=== PATIENT | female | born 1950 | race Caucasian/White ===

== ENCOUNTER 2021-04-20 04:36 | Emergency (ER) | payer MEDICARE, OTHER, BC, SELFPAY ==
[2021-04-20 04:38] VITALS: BP 165/86; PULSE 81; RESP 19; TEMP 36.7; O2SAT 98; BMI 30.9
--- NOTE | 2021-04-20 04:54 | EKG12_ITS ---
Test Reason : CP Blood Pressure : / mmHG Vent. Rate : 066 BPM Atrial Rate : 066 BPM P-R Int : 156 ms QRS Dur : 088 ms QT Int : 404 ms P-R-T Axes : 050 -11 057 degrees QTc Int : 423 ms Normal sinus rhythm Normal ECG Confirmed by CECE MCDONALD, CARMELITA ([id number]), purchase request editor TATUM CHAMPION ([id number]) on 04/21/2021 9:35:57 AM Referred By: PL Confirmed By:CARMELITA ZHAO MD
--- NOTE | 2021-04-20 04:54 | RAD_ITS ---
STUDY: X-RAY CHEST REASON FOR EXAM: Female, 70 years old. chest pain TECHNIQUE: Single AP portable view of the chest. COMPARISON: None. FINDINGS: The lungs are clear and expanded. There is no demonstrated pleural abnormality. Normal size heart. Normal mediastinum and jewell. Normal visualized pulmonary arteries. Normal visualized aortic arch and descending thoracic aorta. There is a dextroscoliosis of the thoracic spine. There is degenerative osteoarthritis of the bilateral shoulders. There is no demonstrated abnormality of the visualized soft tissue structures of the upper abdomen. RAD/Chest 1 View (Portable) IMPRESSION: Degenerative changes, as described above. No demonstrated acute cardiopulmonary process. Electronically Signed: Amos Glaser MD at 5:29 EDT Tel , Service support ,
--- NOTE | 2021-04-20 04:55 | EX.ED.DYSGE1 ---
HPI History of Present Illness Chief Complaint: Chest Pain Informant: patient Narrative Narrative: Patient presents with pain that was just under the left breast at the upper abdomen area. She states it felt like a muscle pull. Nothing made it better or worse. It occurred as she was lying down. No dyspnea. No coughing. No nausea vomiting or diaphoresis. Patient just had a 3 to 4-hour surgery for bladder suspension and mesh placement at [facility] 8 days ago. She has been doing well. She has been eating drinking and moving the bowels well. Urinating well. She has not been having the symptoms until this morning. She has no history of DVT or PE. No family history. No family history of early cardiac disease. No recent travel. [facility] Medical History Hypertension Home Medications amlodipine 5 mg PO/SL DAILY 04/20/21 [History Last Taken Unknown] atorvastatin 10 mg PO/SL DINNER 04/20/21 [History Last Taken Unknown] spironolactone 25 mg PO/SL DAILY 04/20/21 [History Last Taken Unknown] Allergy/AdvReac Type Severity Reaction Status Date / Time Penicillins Allergy Rash Verified 04/20/21 04:43 erythromycin base AdvReac Nausea/Vom/ Verified 04/20/21 04:43 Diarrhea Surgical History H/O: hysterectomy Social History Smoking Status: Never smoker ROS [facility] ED Constitutional Constitutional ED: Denies fever(s) or sweats ENT ENT ED: Denies rhinorrhea or sore throat Cardiovascular Cardiovascular: Reports chest pain and other Details: See history of present illness. ; Denies palpitations or racing heartbeat Respiratory/Chest Respiratory/Chest: Denies cough, dyspnea or sputum Gastrointestinal Gastrointestinal: Reports abdominal pain and other Details: See history of present illness ; Denies constipation, diarrhea, melena, nausea or vomiting Genitourinary Genitourinary ED: Denies dysuria or hematuria Musculoskeletal Musculoskeletal: Denies back pain, myalgias or neck pain Integumentary Denies rash Neurologic Neurologic: Denies headache(s), paresthesias or weakness Psychiatric Psychiatric: Denies depression Endocrine Endocrinology: Denies polydipsia or polyuria Allergic/Immunologic Allergic/Immunologic ED: Denies urticaria EXAM Physical Exam Const Vital Signs: 04/20/21 04:38 04/20/21 06:00 04/20/21 06:49 Temperature 98.1 F Temperature Source Oral Pulse Rate 81 66 Respiratory Rate 19 H 18 Respiratory Effort Normal Blood Pressure 165/86 H 112/72 Blood Pressure Mean 112 85 Pulse Ox 98 96 Oxygen Delivery Method Room Air Room Air Patient looks comfortable. Positive well nourished and well developed General Appearance ED: well developed and NAD; Negative for cyanotic or diaphoretic HEENT Negative for trauma or tenderness Eyes General Eye ED: Negative for pale conjunctiva or scleral icterus Neck no JVD Chest Wall inspection of chest normal and palpation of chest normal Resp normal respiratory effort and clear to auscultation bilaterally Effort and Inspection: Negative for pain with movement Auscultation: Negative for rales, rhonchi or wheezes Cardio regular rate, regular rhythm and no murmurs GI normal to inspection, nondistended, normoactive bowel sounds and non-tender GI Narrative: 5 port sites are clean dry and intact. Palpation: soft Back/Spine no CVA tenderness Extremity normal to inspection Extremity Narrative: No edema, cords, distended veins, tenderness along the deep venous system or asymmetry. General Extremety ED: Negative for edema or tenderness General Extremity: Negative for edema Neuro oriented x3 Sensorium / Orientation: alert Psych mental status grossly normal Skin no rashes or lesions noted MDM MDM MDM Narrative Medical decision making narrative: Patient's blood work showed normal CBC electrolytes liver function test. D-dimer was elevated at 0.8. This was suspected. But with this and her complaints and recent history we did do CT scans. I did CTA of the chest and CT of the abdomen because of her recent surgery. Happily these do not show any acute process. Patient is comfortable. She will go home and follow-up with her physician. If she has fevers, pains, trouble breathing or any other symptoms she is welcome to return at any time. Lab Data Attestation: I reviewed the patient's lab results. Labs: Laboratory Results - last 24 hr 04/20/21 04/20/21 04/20/21 04:43 04:43 04:43 WBC 7.3 RBC 4.64 Hgb 13.6 Hct 42.6 MCV 91.8 MCH 29.3 MCHC 31.9 L RDW Std Deviation 45.6 H RDW Coeff of Maile 13.3 Plt Count 362 MPV 10.2 Immature Gran % (Auto) 0.400 Neut % (Auto) 60.7 Lymph % (Auto) 26.9 Sweet Grass % (Auto) 6.8 Eos % (Auto) 4.5 Baso % (Auto) 0.7 Absolute Neuts (auto) 4.4 Absolute Lymphs (auto) 1.97 Nucleated RBC % 0 D-Dimer Quant (PE/DVT) 0.80 H* Sodium 139 Potassium 3.9 Chloride 104 Carbon Dioxide 28.0 Anion Gap 7 BUN 17 Creatinine 0.68 Estim Creat Clear Calc 40.22 Est GFR (MDRD) Af Amer 109 Est GFR (MDRD) Non-Af 90 BUN/Creatinine Ratio 24.9 H Glucose 95 Calcium 9.0 Total Bilirubin 0.40 AST 22 ALT 30 Alkaline Phosphatase 91 Troponin I High Sens 6 Total Protein 7.9 Albumin 3.6 Globulin 4.3 H Albumin/Globulin Ratio 0.8 L Radiography Diagnostic Testing: Clinical Impression(s) from Imaging Studies Chest X-Ray 04/20/21 04:54 IMPRESSION: Degenerative changes, as described above. No demonstrated acute cardiopulmonary process. Electronically Signed: Amos Glaser MD at 5:29 EDT Tel , Service support , Abdomen/Pelvis CT 04/20/21 05:13 IMPRESSION: There is dextroscoliosis of the lumbar spine narrowing the measures 52 degrees. No acute abnormality of the abdomen and pelvis. Electronically Signed: Amos Glaser MD at 7:08 EDT Tel , Service support , Chest CTA 04/20/21 05:13 IMPRESSION: No demonstrated pulmonary embolism or arterial dissection. There is dextroscoliosis of the thoracic spine. Electronically Signed: Amos Glaser MD at 7:20 EDT Tel , Service support , EKG Initial EKG: Comments: EKG done for upper abdomen/lower chest pain read by me showed normal sinus rhythm with overall rate of 66. No ectopy. No acute ST elevation or depression. TX interval, QRS duration and QTc are normal. No prior for comparison. Discharge Plan Triage Chief Complaint: Chest Pain ED Provider: Gareth Cabrera Dx/Rx/DC Orders Clinical Impression: Chest pain, Acute postoperative abdominal pain Instructions: Abdominal Pain, ED Chest Pain, Uncertain Cause Prescriptions: No Action amlodipine 5 mg PO/SL DAILY RF: 0 atorvastatin 10 mg PO/SL DINNER RF: 0 spironolactone 25 mg PO/SL DAILY RF: 0 Primary Care Provider: Genaro Aldrich Referrals: Genaro Aldrich DO [Primary Care Provider] - Activity Restrictions/Additional Instructions: Follow-up with your surgeon as scheduled. Disposition Disposition: Home, Self Care
[2021-04-20 05:01] LABS: Absolute Lymphocyte Count 1.97 X10^3/uL (0.83-4.51); Absolute Neutrophil Count 4.4 X10^3/uL (2.0-7.7); Basophil# 0.05 X10^3/uL; Basophil% 0.7 % (0-1); Eosinophil# 0.33 X10^3/uL; Eosinophils% 4.5 % (0-5); Hematocrit 42.6 % (37-47); Hemoglobin 13.6 g/dL (12.0-15.0); Lymphocyte # 1.97 X10^3/ul (0.83-4.51); Lymphocyte % 26.9 % (19-41); Mean Corp Hgb Conc 31.9 g/dL (32-36); Mean Corpuscular Hgb 29.3 pg (27.0-32.0); Mean Corpuscular Volume 91.8 fL (81-99); Mean Platelet Vol. 10.2 fl (6.2-12.0); Monocyte% 6.8 % (0-10); NRBC Flagged by Analyzer 0 % (0-5); Neutrophil # 4.44 X10^3/uL (2.7-7.7); Neutrophil % 60.7 % (47-70); Platelet Count 362 K/mm3 (150-450); RBC Distribution Width CV 13.3 % (11.6-14.6); RBC Distribution Width SD 45.6 fl (35.1-43.9); Red Blood Count 4.64 M/mm3 (4.2-5.4); White Blood Count 7.3 K/mm3 (4.4-11.0)
--- NOTE | 2021-04-20 05:13 | CT_ITS ---
STUDY: CT ABDOMEN AND PELVIS WITH CONTRAST REASON FOR EXAM: Female, 70 years old. abd pain RADIATION DOSAGE (If Supplied By Facility): CTDIvol = ( 18.47 ) mGy, DLP = ( 1635.60 ) mGycm TECHNIQUE: Transaxial images were obtained from the dome of the diaphragm to the symphysis pubis without oral contrast. IV 100mL Isovue-370 was administered. Sagittal and coronal images were reconstructed. Individualized dose optimization techniques were used for this CT. COMPARISON: None. FINDINGS: The visualized lung bases are unremarkable. The visualized portions of the heart are within normal limits. Normal liver. Normal gallbladder and extrahepatic biliary system. Normal spleen. Normal pancreas. Normal bilateral adrenal glands. Normal right kidney. Normal left kidney. Normal visualized stomach. Normal small intestine. Normal colon. The appendix is visualized and appears normal. Normal abdominal aorta. Normal inferior vena cava. Normal retroperitoneum. Normal urinary bladder. Normal abdominal wall. There is dextroscoliosis of the lumbar spine narrowing the measures [address]/Abdomen/Pelvis W IV Cont ONLY IMPRESSION: There is dextroscoliosis of the lumbar spine narrowing the measures 52 degrees. No acute abnormality of the abdomen and pelvis. Electronically Signed: Amos Glaser MD at 7:08 EDT Tel , Service support ,
--- NOTE | 2021-04-20 05:13 | CT_ITS ---
STUDY: CTA CHEST REASON FOR EXAM: Female, 70 years old. pe RADIATION DOSAGE (If Supplied By Facility): CTDIvol = ( 18.47 ) mGy, DLP = ( 1635.60 ) mGycm TECHNIQUE: The examination was performed with the intravenous administration of IV 100mL Isovue-370. Post-processing of the angiographic images was performed, with multiplanar reformation and 3D reconstruction. Individualized dose optimization techniques were used for this CT. COMPARISON: None. FINDINGS: Normal enhancement of the main pulmonary artery and right and left pulmonary arteries. Normal enhancement of the bilateral peripheral pulmonary arteries. There is no demonstrated pulmonary embolism. Normal thoracic aorta and visualized great vessels. There is no demonstrated aortic dissection. Normal heart and pericardium. Normal mediastinum. Normal hilar regions. Normal visualized trachea and bronchi. The lungs are well expanded. Normal pulmonary parenchyma. Normal pleura. Normal chest wall structures. There is dextroscoliosis of the thoracic spine. Normal visualized upper abdomen. CT/CTA Chest W/WO Contrast IMPRESSION: No demonstrated pulmonary embolism or arterial dissection. There is dextroscoliosis of the thoracic spine. Electronically Signed: Amos Glasre MD at 7:20 EDT Tel , Service support ,
[2021-04-20 05:18] LABS: ALB/GLOB Ratio 0.8 RATIO (0.9-2.4); AST(SGOT) 22 U/L (15-37); Alanine Aminotransfer ALT/SGPT 30 U/L (13-56); Albumin, Serum 3.6 g/dL (3.2-5.0); Alkaline Phosphatase 91 U/L (45-117); Anion Gap 7 (5-15); BUN 17 mg/dL (7-18); BUN/Creat Ratio 24.9 RATIO (10-20); Chloride 104 mmol/L (98-107); Creatinine, Serum 0.68 mg/dL (0.55-1.02); EST Glomerular Filtration Rate 90 mL/min (>60); Est Glom Filt Rate - Afr Amer 109 mL/min (>60); Estimated Creatinine Clearance 40.22 ml/min; Globulin 4.3 g/dL (2.2-4.2); Glucose 95 mg/dL (74-106); Potassium 3.9 mmol/L (3.5-5.1); Protein, Total 7.9 g/dL (6.4-8.2); Sodium Level 139 mmol/L (136-145); Troponin-I HS 6 pg/mL (3.0-54.0)
[2021-04-20 06:49] VITALS: BP 112/72; PULSE 66; RESP 18; O2SAT 96
[2021-04-20 07:33] VITALS: BP 127/73; PULSE 82; RESP 16; O2SAT 97
== END 2021-04-20 07:39 | disposition home or self-care (01) ==
PROVIDERS: Emergency Provider Emergency Medicine; PCP Student in an Organized Health Care Education/Training Program
DX: R07.9 Chest pain, unspecified (principal); G89.18 Other acute postprocedural pain; I10 Essential (primary) hypertension; M48.061 Spinal stenosis, lumbar region without neurogenic claudication; Z79.899 Other long term (current) drug therapy
CPT/HCPCS: 71045; 71275; 74177; 80053; 84484; 85025; 85379; 93005; 99284; Q9967; A4216